=== PATIENT | male | born 1985 | race Caucasian/White ===

== ENCOUNTER 2022-01-13 18:18 | Emergency (ER) | payer BC, SELFPAY ==
--- NOTE | ~2022-01-13 | CT_ITS ---
EXAMINATION: CT brain wo con DATE: 01/13/2022 19:02 INDICATION: Right face and hand numbness. Headache. TECHNIQUE: Computed tomography (CT) of the head was performed without intravenous contrast. The mA wa s adjusted according to patient size. Iterative reconstruction technique was employed. The dose-lengt h product was 605.33 mGy-cm. COMPARISON: None FINDINGS: There is no intracranial hemorrhage, acute infarction, or abnormal intracranial mass lesion . The ventricles are normal in size. The orbits are normal. There is mucosal thickening in the parana peter sinuses. There is a small right mastoid effusion. IMPRESSION: 1. Normal brain. Reviewed, dictated and finalized at location A. IMPRESSION: 1. Normal brain.
--- NOTE | 2022-01-13 18:32 | ED.DIZZY ---
HPI - Dizziness General Chief Complaint: Headache Stated Complaint: dizzy, facial, finger numbness, visual changes Time Seen by Provider: 01/13/22 18:32 Source: patient and RN notes reviewed Mode of arrival: ambulatory Limitations: no limitations History of Present Illness HPI Narrative: patient states that he had an episode yesterday when he had dizziness and just did not feel well all day. It seemed to resolve then today about 2 hours prior to arrival patient had an episode of blurred doubled vision with possible scotoma. He then had numbness on the right side of his face and his right hand. He says that is all resolved and now he just has a headache on his left frontal head. MD elicited complaint: dizziness Onset (ago): day(s) Timing: sudden onset and intermittent Severity: moderate Description: off-balance History of similar symptoms: Yes Exacerbating factors: nothing Relieving factors: nothing Associated symptoms: other ( headache) Associated neuro symptoms: vision changes, facial numbness and limb numbness Related Data Home Medications Medication Instructions Recorded Confirmed No Home Medications 01/13/22 01/13/22 Allergies Allergy/AdvReac Type Severity Reaction Status Date / Time No Known Allergies Allergy Verified 01/13/22 18:37 Review of Systems Review of Systems: All systems reviewed & are unremarkable except as noted in HPI and below PMFSH Past Medical History Medical History (Updated 01/13/22 @ 19:51 by Greg Ling MD) No active medical problems Surgical History Surgical History (Updated 01/13/22 @ 18:34 by Greg Ling MD) History of appendectomy Social History Social History (Updated 01/13/22 @ 18:32 by Greg Ling MD) Smoking status: Never smoker Alcohol intake: current Alcohol use details: Beer daily Exam Const: General: healthy appearing, no acute distress and alert Nutritional Appearance: well nourished and obese centrally obese Orientation/consciousness: patient oriented x3 Limitations: no limitations HENMT: Head: normal to inspection Ears: TM's normal bilaterally Face and sinus: normal facial exam Mouth: Yes moist mucous membranes Eyes: Conjunctivae: conjunctivae normal Pupils: Equal, round and reactive pupils present EOM: EOMs intact bilaterally Neck: Neck: normal visual inspection Resp: Effort & Inspection: normal respiratory effort Auscultation: clear to auscultation bilaterally Cardio: Rate: regular rate Rhythm: regular rhythm GI: GI Palp: Yes Soft to palpation and No Tenderness to palpation present (GI) Auscultation: normal bowel sounds Back/Spine/Pelvis: Cervical Spine: cervical ROM normal Thoracic/Lumbar Spine: thoraco-lumbar ROM normal Skin: General skin exam: normal color Rashes: no rashes Neuro: General: patient oriented x3, moves all extremities, no focal motor deficits and CN's II-XI intact bilaterally Cognition (Neuro): normal cognition Speech: normal speech Gait exam (Neuro): Normal gait present Motor exam (neuro): 5/5 motor strength present throughout and Motor abnormalities not present Sensory Exam: normal sensation Coordination: [id number] test normal and Normal rapid alternating movements of the distal upper extremity present (Neuro) Extrem: General: normal to inspection and no clubbing, cyanosis or edema Psych: Mental Status: mental status grossly normal Affect: normal affect Attitude: cooperative MDM - Dizziness Differential Diagnosis Differential diagnosis: Likely vertebral basilar insufficiency, cerebrovascular accident, transient cerebral ischemia and other ( Hypertension, atypical migraine) Lab Data Attestation: I reviewed the patient's lab results. Discharge Plan Discharge Clinical Impression: Migraine Qualifiers: Migraine type: hemiplegic Status migrainosus presence: without status migrainosus Intractability: not intractable Qualified Code(s): G43.409 - Hemiplegic migraine, not intractable, with
[2022-01-13 18:34] VITALS: BP 176/115; PULSE 91; RESP 16; TEMP 36.4; O2SAT 98
[2022-01-13 18:35] LABS: Glucose Point of Care 100 mg/dl (65-105)
--- NOTE | 2022-01-13 18:41 | ECG_ITS ---
Measurements Intervals [place] Rate: 87 P: 14 [place]: 143 QRS: 26 QRSD: 86 T: 14 QT: 332 QTc: 399 Interpretive Statements SINUS RHYTHM Normal ECG NO PREVIOUS ECG AVAILABLE FOR COMPARISON Electronically Signed On 01-14-2022 10:40:31 CDT by Alcides Hein M.D.
[2022-01-13 19:05] LABS: Basophils Absolute Auto 0.05 K/mm3 (0.00-0.10); Basophils Percent Auto 0.6 % (0.0-1.0); Eosinophils Absolute Auto 0.21 K/mm3 (0.02-0.50); Eosinophils Percent Auto 2.5 % (1.0-6.0); Hematocrit 45.3 % (40.0-54.0); Immature Granulocyte Absolute 0.03 K/mm3 (0.00-0.00); Immature Granulocyte Percent A 0.4 % (0.0-0.0); Lymphocytes Absolute Auto 2.27 K/mm3 (1.10-4.50); Lymphocytes Percent Auto 27.4 % (18.0-42.0); Mean Corpuscular HGB Conc 33.1 g/dL (32.0-36.0); Mean Corpuscular Hemoglobin 30.6 pg (27.0-31.0); Mean Corpuscular Volume 92.4 fL (78.0-102.0); Mean Platelet Volume 9.1 fl (8.7-11.0); Monocytes Absolute Auto 0.77 K/mm3 (0.10-0.90); Monocytes Percent Auto 9.3 % (2.0-11.0); Neutrophils Percent Auto 59.8 % (50.0-70.0); Platelet Count Result 311 K/mm3 (150-420); Red Cell Distribution Width 12.3 % (11.6-14.4); White Blood Count 8.3 K/mm3 (4.8-10.8)
[2022-01-13 19:24] VITALS: BP 140/88; PULSE 90; RESP 16; O2SAT 98
[2022-01-13 19:31] LABS: Alanine Aminotransferase 31 U/L (16-63); Albumin Level 3.9 g/dL (3.4-5.0); Alkaline Phosphatase 86 U/L (46-116); Anion Gap 8 mmol/L (8-16); Aspartate Amino Transferase 20 U/L (15-37); Bilirubin,Total 0.3 mg/dL (0.00-1.00); Blood Urea Nitrogen 16 mg/dL (7-18); Calcium 9.2 mg/dL (8.5-10.1); Carbon Dioxide 26 mmol/L (21-32); Chloride 102 mmol/L (98-108); Estimated Glomerular Filt Rate > 60; Glucose 112 mg/dL (70-99); Magnesium 2.2 mg/dL (1.8-2.4); Osmolality Calculated 284 mOsm/kg (285-295); Potassium 3.7 mmol/L (3.5-5.1); Sodium 136 mmol/L (136-145); Total Protein 7.7 g/dL (6.4-8.2); Troponin I 5.3 ng/L (0.00-60.4)
[2022-01-13 19:32] LABS: Thyroid Stimulating Hormone 2.16 uIU/mL (0.36-3.74)
[2022-01-13] MEDS: KETOROLAC 30 MG/ML VIAL (*BKC) IM (19:41)
[2022-01-13 20:00] VITALS: BP 142/96; PULSE 79; RESP 16; O2SAT 97
== END 2022-01-13 20:03 | disposition home or self-care (01) ==
PROVIDERS: Emergency Provider Emergency Medicine
DX: G43.409 Hemiplegic migraine, not intractable, without status migrainosus (principal); I10 Essential (primary) hypertension
CPT/HCPCS: 36415; 70450; 80053; 82948; 83735; 84443; 84484; 85025; 93005; 96372; 99284; J1885

== ENCOUNTER 2022-01-15 09:06 | Outpatient (CLI) | payer BC, SELFPAY ==
[2022-01-15 09:33] LABS: Cholesterol 252 mg/dL (0-200); HDL Direct 54 mg/dL (40-60); LDL Cholesterol Calculated 168 mg/dL (<130); Triglycerides 148 mg/dL (0-150)
== END 2022-01-15 09:07 | disposition home or self-care (01) ==
LOC: CHSLAB 09:08
PROVIDERS: PCP Family Medicine; Visit Provider Family Medicine
DX: I10 Essential (primary) hypertension (principal)
CPT/HCPCS: 36415; 80061

== ENCOUNTER 2023-08-05 16:28 | Outpatient (CLI) | payer BC, SELFPAY ==
--- NOTE | 2023-08-05 16:39 | ECG_ITS ---
Measurements Intervals [place] Rate: 98 P: 56 [place]: 149 QRS: 46 QRSD: 87 T: 51 QT: 337 QTc: 431 Interpretive Statements SINUS RHYTHM DELAYED PRECORDIAL R/S TRANSITION BORDERLINE ECG COMPARED TO ECG 01/13/2022 18:46:36 NO SIGNIFICANT CHANGES Electronically Signed On 08-05-2023 18:39:36 AEMT by Beltran Baldwin D.O.
[2023-08-05 16:43] LABS: Basophils Absolute Auto 0.05 K/mm3 (0.00-0.10); Basophils Percent Auto 0.5 % (0.0-1.0); Eosinophils Absolute Auto 0.04 K/mm3 (0.02-0.50); Eosinophils Percent Auto 0.4 % (1.0-6.0); Hematocrit 49.7 % (40.0-54.0); Hemoglobin 16.6 g/dL (14.0-18.0); Immature Granulocyte Absolute 0.03 K/mm3 (0.00-0.00); Immature Granulocyte Percent A 0.3 % (0.0-0.0); Lymphocytes Percent Auto 15.6 % (18.0-42.0); Mean Corpuscular HGB Conc 33.4 g/dL (32.0-36.0); Mean Corpuscular Hemoglobin 30.6 pg (27.0-31.0); Mean Corpuscular Volume 91.5 fL (78.0-102.0); Mean Platelet Volume 8.5 fl (8.7-11.0); Monocytes Absolute Auto 0.91 K/mm3 (0.10-0.90); Monocytes Percent Auto 9.4 % (2.0-11.0); Neutrophils Absolute Auto 7.1 K/mm3 (1.7-7.2); Neutrophils Percent Auto 73.8 % (50.0-70.0); Platelet Count Result 342 K/mm3 (150-420); Red Blood Count 5.43 M/mm3 (4.70-6.10); Red Cell Distribution Width 12.9 % (11.6-14.4); White Blood Count 9.6 K/mm3 (4.8-10.8)
[2023-08-05 18:42] LABS: Alanine Aminotransferase 50 U/L (16-63); Albumin Level 4.3 g/dL (3.4-5.0); Alkaline Phosphatase 90 U/L (46-116); Anion Gap 8 mmol/L (8-16); Aspartate Amino Transferase 39 U/L (15-37); Bilirubin,Total 0.7 mg/dL (0.00-1.00); Blood Urea Nitrogen 17 mg/dL (7-18); Calcium 9.2 mg/dL (8.5-10.1); Carbon Dioxide 32 mmol/L (21-32); Chloride 99 mmol/L (98-108); Cholesterol 218 mg/dL (0-200); Estimated Glomerular Filt Rate > 60; Glucose 91 mg/dL (70-99); HDL Direct 99 mg/dL (40-60); LDL Cholesterol Calculated 81 mg/dL (<130); Osmolality Calculated 289 mOsm/kg (285-295); Potassium 4.3 mmol/L (3.5-5.1); Sodium 139 mmol/L (136-145); Thyroid Stimulating Hormone 1.32 uIU/mL (0.36-3.74); Total Protein 7.9 g/dL (6.4-8.2); Triglycerides 188 mg/dL (0-150)
== END 2023-08-05 16:29 | disposition home or self-care (01) ==
LOC: CHSLAB 16:30
PROVIDERS: PCP Nurse Practitioner Family; Visit Provider Nurse Practitioner Family
DX: Z00.00 Encounter for general adult medical examination without abnormal findings (principal)
CPT/HCPCS: 36415; 80053; 80061; 84443; 85025; 93005

== ENCOUNTER 2023-08-30 15:24 | Emergency (ER) | payer BC, SELFPAY ==
[2023-08-30 15:24] VITALS: BP 156/95; PULSE 102; RESP 18; TEMP 37; O2SAT 98
--- NOTE | 2023-08-30 15:35 | ED.GENADULT ---
HPI - General Adult General Chief complaint: Extremity Injury, Lower Stated complaint: knee injury Time Seen by Provider: 08/30/23 15:31 History of Present Illness HPI narrative: Steven is a 37M with a PMH of HTN, anxiety and HLD that presented to the ED with right anterior knee pain. It started at the start of a 5k a little over a week ago. He continued to run and has had pain ever since. It is not responding to OTC meds or ice. No new falls or trauma. Related Data Allergies Allergy/AdvReac Type Severity Reaction Status Date / Time No Known Allergies Allergy Verified 08/30/23 15:30 Review of Systems Review of Systems: All systems reviewed & are unremarkable except as noted in HPI and below PMFSH Past Medical History Medical History Anxiety Hypertension Surgical History Surgical History History of appendectomy Social History Social History Smoking status: Never smoker Alcohol intake: current Alcohol use details: Beer daily Exam Const: General: cooperative, healthy appearing, comfortable, no acute distress, well developed, alert, awake and Physically active Orientation/consciousness: oriented to person, oriented to place and oriented to time HENMT: Head: normal to inspection, normocephalic and atraumatic Ears: hearing grossly normal bilaterally and external ears normal Face/Nose/Sinus: Normal external nose present Eyes: General: appearance normal, both eyes and all related structures Periorbital: periorbital findings normal Sclera: sclerae normal Pupils: Equal, round and reactive pupils present Neck: Neck: normal visual inspection Chest: Chest palpation & inspection: normal inspection of the chest Resp: Effort & Inspection: normal respiratory effort, able to speak in complete sentences and no respiratory distress Cardio: Jugular venous distension: no JVD Skin: General skin exam: normal color and no rashes or lesions noted Neuro: General: oriented to person, oriented to place and oriented to time Cranial nerves: Yes Equal, round and reactive pupils present Extrem: General: normal to inspection Other: Mild swelling of right knee. No instability of right knee. TTP over the pes anserine bursa Course Course Emergency Course: ordered toradol and radiographs. Right Knee Technique: AP, lateral, and sunrise views were obtained. Clinical History: Pain Findings: No fracture or dislocation is seen. Osseous alignment is anatomic. Joint spaces are preserved without degenerative or erosive change. Soft tissues are unremarkable. No joint effusion is seen. Impression: Unremarkable right knee radiographs. Vital Signs Vital signs: Vital Signs Temperature 98.6 F 08/30/23 15:24 Pulse Rate 102 H 08/30/23 15:24 Respiratory Rate 18 08/30/23 15:24 Blood Pressure 156/95 H 08/30/23 15:24 Pulse Oximetry 98 08/30/23 15:24 Oxygen Delivery Room Air 08/30/23 15:24 Temperature 98.6 F 08/30/23 15:24 Pulse Rate 102 H 08/30/23 15:24 Respiratory Rate 18 08/30/23 15:24 Blood Pressure 156/95 H 08/30/23 15:24 Pulse Oximetry 98 08/30/23 15:24 Oxygen Delivery Room Air 08/30/23 15:24 Medical Decision Making Vital Signs Vital Signs: Vital Signs Temperature 98.6 F 08/30/23 15:24 Pulse Rate 102 H 08/30/23 15:24 Respiratory Rate 18 08/30/23 15:24 Blood Pressure 156/95 H 08/30/23 15:24 Pulse Oximetry 98 08/30/23 15:24 Oxygen Delivery Room Air 08/30/23 15:24 Temperature 98.6 F 08/30/23 15:24 Pulse Rate 102 H 08/30/23 15:24 Respiratory Rate 18 08/30/23 15:24 Blood Pressure 156/95 H 08/30/23 15:24 Pulse Oximetry 98 08/30/23 15:24 Oxygen Delivery Room Air 08/30/23 15:24 Discharge Plan Discharge Clinical Impression: Pes anserine bursitis Patient Dispo
[2023-08-30] MEDS: KETOROLAC 30 MG/ML VIAL (*BKC) IM (15:47)
[2023-08-30 16:35] VITALS: BP 148/88; PULSE 84; RESP 16; TEMP 37.2; O2SAT 99
== END 2023-08-30 16:35 | disposition home or self-care (01) ==
PROVIDERS: Emergency Provider Family Medicine; PCP Family Medicine
DX: M71.561 Other bursitis, not elsewhere classified, right knee (principal); I10 Essential (primary) hypertension; E78.5 Hyperlipidemia, unspecified; F41.9 Anxiety disorder, unspecified
CPT/HCPCS: 73562; 96372; 99283; J1885

== ENCOUNTER 2024-03-29 07:49 | Emergency (ER) | payer BC, SELFPAY ==
[2024-03-29 07:49] VITALS: BP 124/86; PULSE 91; RESP 18; TEMP 36.8; O2SAT 97
--- NOTE | 2024-03-29 07:56 | ED.URI ---
HPI - URI/Sore Throat General Chief Complaint: Upper Respiratory Infection Stated Complaint: sore throat Time Seen by Provider: 03/29/24 07:56 Source: patient Mode of arrival: ambulatory Limitations: no limitations History of Present Illness HPI Narrative: 38-year-old male with a history of anxiety, hypertension, dyslipidemia, migraine presents to the ED with a 2 day history of -- sore throat -- nasal congestion with drainage. discharge is watery. -- Subjective fever -- nonproductive cough. No shortness of breath MD elicited complaint: fever, cough, sore throat, rhinorrhea and nasal congestion Onset (ago): day(s) ( 2 days) Consistency: constant Description of mucous: clear Able to tolerate fluids by mouth: Yes Exacerbating factors: nothing Relieving factors: nothing Context: sick contacts ( his children tested positive for strep) Associated symptoms: fever, rhinorrhea, nasal congestion, sore throat and cough Treatments prior to arrival: none Related Data Allergies Allergy/AdvReac Type Severity Reaction Status Date / Time No Known Allergies Allergy Verified 08/30/23 15:30 Review of Systems Review of Systems: All systems reviewed & are unremarkable except as noted in HPI and below Constitutional: Constitutional: Reports as per HPI, Reports no additional constitutional complaints and Reports fever(s) Eyes: Eyes: Reports as per HPI and Reports no additional eye complaints ENT: Reports system reviewed and no additional complaints, except as documented, Reports as per HPI, Reports nasal congestion and Reports sore throat Cardiovascular: Cardiovascular: Reports as per HPI and Reports no additional cardiovascular complaints Respiratory: Respiratory: Reports as per HPI and Reports no additional respiratory complaints Gastrointestinal: Gastrointestinal: Reports as per HPI and Reports no additional gastrointestinal complaints Genitourinary: Genitourinary: Reports no additional male genitourinary complaints and Reports as per HPI Musculoskeletal: Musculoskeletal: Reports no additional musculoskeletal complaints and Reports as per HPI Integumentary/Breasts: Skin/Breast: Reports system reviewed and no additional complaints, except as docu and Reports as per HPI Neurologic: Reports system reviewed and no additional complaints, except as documented and Reports as per HPI Psychiatric: Psychiatric: Reports no additional psychiatric complaints and Reports as per HPI Endocrine: Endocrine: Reports no additional endocrine complaints and Reports as per HPI Hematologic/Lymphatic: Hematologic/Lymphatic: Reports no additional hematologic/lymphatic complaints and Reports as per HPI Allergic/Immunologic: Allergic/Immunologic: Reports no additional allergic/immunologic complaints and Reports as per HPI PMFSH Past Medical History Medical History Anxiety Hypertension Surgical History Surgical History History of appendectomy Social History Social History Smoking status: Never smoker Alcohol intake: current Alcohol use details: Beer daily Exam Narrative: vitals are stable Const: Orientation/consciousness: patient oriented x3 Limitations: no limitations HENMT: Head: normal to inspection Ears: external ears normal and TM's normal bilaterally ( right tympanic membrane is scarred. Left tympanic membrane is retracted.) Face/Nose/Sinus: Normal external nose present Face and sinus: normal facial exam Mouth: Yes Normal oral and palatal mucosa present Other: Pharyngeal erythema Eyes: Conjunctivae: conjunctivae normal Pupils: Equal, round and reactive pupils present EOM: EOMs intact bilaterally Direct Ophthalmoscopy: no photophobia Neck: Neck: normal visual inspection and no lymphadenopathy Chest: Chest palpation & inspection: normal inspection of the chest Resp: Effort & Inspection: normal respiratory effort Auscultation: clear to auscultation bilaterally Cardio: Rate: regular rate Rhythm: regular rhythm GI: GI Palp: Yes Soft to palpation Auscultation: normal bowel sounds : General: Yes no CVA tenderness Back/Spine/Pelvis: Back: no CVA tenderness Cervical Spine: collar present Skin: General skin exam: normal color Rashes: no rashes Neuro: General: patient oriented x3, moves all extremities, no meningeal signs, no focal motor deficits and CN's II-XI intact bilaterally Cranial nerves: Yes Nystagmus not present Speech: normal speech Gait exam (Neuro): Normal gait present Extrem: General: normal to inspection and no clubbing, cyanosis or edema Psych: Mental Status: mental status grossly normal Affect: normal affect Attitude: cooperative Course Course Emergency Course: upper respiratory tract infection. Will check for influenza/ RSV /COVID / strep. Patient tested negative for influenza/ RSV / COVID /strep. Vital Signs Vital signs: Vital Signs Temperature 36.8 C 03/29/24 07:49 Pulse Rate 91 03/29/24 07:49 Respiratory Rate 18 03/29/24 07:49 Blood Pressure 124/86 03/29/24 07:49 Pulse Oximetry 97 03/29/24 07:49 Oxygen Delivery Room Air 03/29/24 07:49 Temperature 36.8 C 03/29/24 07:49 Pulse Rate 91 03/29/24 07:49 Respiratory Rate 18 03/29/24 07:49 Blood Pressure 124/86 03/29/24 07:49 Pulse Oximetry 97 03/29/24 07:49 Oxygen Delivery Room Air 03/29/24 07:49 MDM - URI/Sore Throat MDM Narrative Medical decision making narrative: Upper respiratory tract infection Differential Diagnosis Differential diagnosis: Likely viral infection and bronchitis Lab Data Attestation: I reviewed the patient's lab results. Labs: Lab Results 03/29/24 Range/Units 07:57 Influenza A (RT-PCR) Negative (Negative) Influenza B (RT-PCR) Negative (Negative) RSV (RT-PCR) Negative (Negative) SARS-CoV-2 RNA (RT-PCR) Negative (Negative) Group A Strep (PCR) Not detected (Negative) Discharge Plan Discharge Clinical Impression: Upper respiratory infection Patient Disposition: Home, Self-Care Condition: Stable Instructions: Antibiotic Form, Upper Respiratory Infection (ED) Patient Language: Bahamian Prescriptions: No Action lisinopril-hydrochlorothiazide 20-12.5 mg tablet 1 tablet PO DAILY Qty: 30 3RF atorvastatin 20 mg tablet See Rx Instructions .ROUTE .COMPLEX Qty: 90 0RF Dose Instruction: TAKE ONE TABLET BY MOUTH DAILY Rx Instructions: TAKE ONE TABLET BY MOUTH DAILY buspirone 5 mg tablet 5 mg PO BID 30 Days Qty: 60 1RF Follow-up/Referrals: Yanick Daugherty DO [Primary Care Provider] - Time of Disposition: 08:49
[2024-03-29 08:29] LABS: Strep Group A RT-PCR NOT DETECTED (Negative)
[2024-03-29 08:36] LABS: SARS-CoV-2 RNA PCR Negative (Negative)
[2024-03-29 08:38] LABS: Influenza A QL RT-PCR Negative (Negative); Influenza B QL RT-PCR Negative (Negative); RSV RNA, RT-PCR Negative (Negative)
[2024-03-29 09:09] VITALS: BP 126/85; PULSE 82; RESP 20; TEMP 36.6; O2SAT 97
== END 2024-03-29 09:09 | disposition home or self-care (01) ==
PROVIDERS: Emergency Provider Internal Medicine Critical Care Medicine; PCP Family Medicine
DX: J06.9 Acute upper respiratory infection, unspecified (principal); I10 Essential (primary) hypertension; E78.5 Hyperlipidemia, unspecified; Z20.822 Contact with and (suspected) exposure to COVID-19
CPT/HCPCS: 87637; 87651; 99283

== ENCOUNTER 2024-08-04 08:18 | Outpatient (CLI) | payer BC, SELFPAY ==
[2024-08-04 08:36] LABS: Basophils Absolute Auto 0.04 K/mm3 (0.00-0.10); Basophils Percent Auto 0.7 % (0.0-1.0); Eosinophils Absolute Auto 0.13 K/mm3 (0.02-0.50); Eosinophils Percent Auto 2.2 % (1.0-6.0); Hematocrit 47.4 % (40.0-54.0); Hemoglobin 15.5 g/dL (14.0-18.0); Immature Granulocyte Absolute 0.02 K/mm3 (0.00-0.00); Immature Granulocyte Percent A 0.3 % (0.0-0.0); Lymphocytes Absolute Auto 1.82 K/mm3 (1.10-4.50); Lymphocytes Percent Auto 30.4 % (18.0-42.0); Mean Corpuscular HGB Conc 32.7 g/dL (32-36); Mean Corpuscular Hemoglobin 30.5 pg (27.0-31.0); Mean Corpuscular Volume 93.1 fL (78.0-102.0); Mean Platelet Volume 8.6 fl (8.7-11.0); Monocytes Absolute Auto 0.64 K/mm3 (0.10-0.90); Monocytes Percent Auto 10.7 % (2.0-11.0); Neutrophils Absolute Auto 3.34 K/mm3 (1.70-7.20); Neutrophils Percent Auto 55.7 % (50.0-70.0); Platelet Count Result 308 K/mm3 (150-420); Red Blood Count 5.09 M/mm3 (4.70-6.10); Red Cell Distribution Width 12.5 % (11.6-14.4)
[2024-08-04 09:17] LABS: Alanine Aminotransferase 33 U/L (16-63); Alkaline Phosphatase 91 U/L (46-116); Anion Gap 6 mmol/L (4-12); Aspartate Amino Transferase 22 U/L (15-37); Bilirubin,Total 0.6 mg/dL (0.00-1.00); Blood Urea Nitrogen 17 mg/dL (7-18); Calcium 9.8 mg/dL (8.5-10.1); Carbon Dioxide 30 mmol/L (21-32); Chloride 102 mmol/L (98-108); Cholesterol 192 mg/dL (0-200); Estimated Glomerular Filt Rate > 60; Glucose 113 mg/dL (70-99); HDL Direct 69 mg/dL (40-60); LDL Cholesterol Calculated 103 mg/dL (<130); Osmolality Calculated 288 mOsm/kg (285-295); Potassium 5.1 mmol/L (3.5-5.1); Sodium 138 mmol/L (136-145); Total Protein 7.6 g/dL (6.4-8.2); Triglycerides 98 mg/dL (0-150)
[2024-08-04 09:30] LABS: Thyroid Stimulating Hormone Reflex 1.31 u/IU/mL (0.36-3.74)
== END 2024-08-04 08:19 | disposition home or self-care (01) ==
LOC: CHSLAB 08:20
PROVIDERS: PCP Family Medicine; Visit Provider Family Medicine
DX: E03.9 Hypothyroidism, unspecified (principal); I10 Essential (primary) hypertension
CPT/HCPCS: 36415; 80053; 80061; 84443; 85025